=== PATIENT | female | born 2005 | race Two or more races ===

== ENCOUNTER 2025-06-05 08:36 | Emergency (ER) | payer OTHER ==
[~2025-06-05] VITALS: Ht 167.6 cm; Wt 40.8 kg
[2025-06-05 08:45] VITALS: BP 92/57; TEMP 97.9; O2SAT 100
== END 2025-06-05 10:36 | disposition home or self-care (01) ==
LOC: ER 08:52
DX: R06.02 Shortness of breath (principal); R07.89 Other chest pain; Z53.21 Procedure and treatment not carried out due to patient leaving prior to being seen by health care provider